=== PATIENT | male | born 1990 | race Caucasian/White ===

== ENCOUNTER 2017-02-26 21:03 | Emergency (ER) | payer MEDICAID ==
[~2017-02-26] VITALS: Ht 175.3 cm; Wt 123.4 kg
[2017-02-26 21:27] VITALS: BP 158/96
== END 2017-02-26 21:32 | disposition left against medical advice (07) ==
LOC: ER 21:03
DX: R04.0 Epistaxis (principal); Z53.21 Procedure and treatment not carried out due to patient leaving prior to being seen by health care provider

== ENCOUNTER 2018-07-01 15:57 | Emergency (ER) | payer MEDICAID ==
[~2018-07-01] VITALS: Ht 172.7 cm; Wt 110.2 kg
[2018-07-01 16:23] VITALS: BP 147/82
[2018-07-01] MEDS ORDERED: TETANUS-DIPTH-ACEL PERTUSSIS 0.5ML SYRG IM ONE (20:30)
== END 2018-07-01 20:54 | disposition home or self-care (01) ==
LOC: ER 16:07
DX: S61.211A Laceration without foreign body of left index finger without damage to nail, initial encounter (principal); W26.0XXA Contact with knife, initial encounter; Y93.89 Activity, other specified; Y99.8 Other external cause status; Y92.89 Other specified places as the place of occurrence of the external cause
CPT/HCPCS: 90715

== ENCOUNTER 2019-10-15 20:45 | Emergency (ER) | payer MEDICAID ==
[~2019-10-15] VITALS: Ht 177.8 cm; Wt 119.7 kg
[2019-10-15 23:45] VITALS: BP 142/87
== END 2019-10-16 00:28 | disposition home or self-care (01) ==
LOC: ER 20:48
DX: J01.00 Acute maxillary sinusitis, unspecified (principal); H65.93 Unspecified nonsuppurative otitis media, bilateral; J44.9 Chronic obstructive pulmonary disease, unspecified; I10 Essential (primary) hypertension; E07.9 Disorder of thyroid, unspecified

== ENCOUNTER 2021-04-30 11:40 | Emergency (ER) | payer MEDICAID ==
[~2021-04-30] VITALS: Ht 175.3 cm; Wt 72.6 kg
[2021-04-30 12:22] VITALS: BP 163/114
[2021-04-30] MEDS ORDERED: ACETAMINOPHEN 500 MG TAB PO ONE (13:00)
== END 2021-04-30 13:20 | disposition home or self-care (01) ==
LOC: ER 11:40
DX: S93.491A Sprain of other ligament of right ankle, initial encounter (principal); J44.9 Chronic obstructive pulmonary disease, unspecified; I10 Essential (primary) hypertension; W22.8XXA Striking against or struck by other objects, initial encounter; Y93.89 Activity, other specified; Y92.89 Other specified places as the place of occurrence of the external cause; Y99.8 Other external cause status
CPT/HCPCS: 73610

== ENCOUNTER 2023-08-18 21:02 | Emergency (ER) | payer MEDICAID ==
[~2023-08-18] VITALS: Ht 170.2 cm; Wt 124.0 kg
[2023-08-18 22:46] LABS: Basophils # (auto) 0 10 ^3/uL (0-0.2); Basophils % (auto) 0.3 % (0.0-2.0); Eosinophils # (auto) 0.1 10 ^3/uL (0-0.8); Eosinophils % (auto) 0.4 % (0.0-7.0); Hematocrit 46.9 % (41.0-53.0); Lymphocytes # (auto) 0.5 10 ^3/uL (0.4-5.4); Lymphocytes % (auto) 3.4 % (10.0-50.0); Mean Corpuscular Hemoglobin 28.2 pg (28.0-32.0); Mean Corpuscular Hgb Conc. 34.1 g/dL (32.0-36.0); Mean Corpuscular Volume 82.7 fL (80.0-100.0); Monocytes # (auto) 0.5 10 ^3/uL (0-1.3); Monocytes % (auto) 3.1 % (0.0-12.0); Neutrophils # (auto) 14.5 10 ^3/uL (1.6-8.6); Neutrophils % (auto) 92.8 % (37.0-80.0); Nucleated Red Blood Cells % 0.2 %; Red Blood Cells 5.67 10^6/uL (4.5-5.90); Red Cell Distribution Width 13.3 % (11.8-14.3); White Blood Cell 15.6 10^3/uL (4.4-10.8)
[2023-08-18 22:59] LABS: Alanine Aminotransferase 26 U/L (7-40); Alkaline Phosphatase 130 U/L (46-116); Anion Gap 6 (5-15); Aspartate Aminotransferase 16 U/L (13-40); BUN/Creatinine Ratio 13.4 (10.0-20.0); Blood Urea Nitrogen 15 mg/dL (9-23); Calcium 9.5 mg/dL (8.7-10.4); Carbon Dioxide 27 mmol/L (20-30); Chloride 103 mmol/L (98-107); Glucose 115 mg/dL (74-106); Lipase 40 U/L (12-53); Potassium 4.3 mmol/L (3.5-5.1); Sodium 136 mmol/L (136-145)
[2023-08-18 23:00] LABS: Bilirubin, Total 0.9 mg/dL (0.2-1.0); Total Protein 8.6 g/dL (5.7-8.2)
[2023-08-18 23:15] LABS: COVID19 ANTIGEN SOFIA FIA NEGATIVE (NEGATIVE); Rapid Influenza A Negative (Negative); Rapid Influenza B Negative (Negative)
[2023-08-18] MEDS ORDERED: SODIUM CHLORIDE 0.9% 1,000 ML IV ONE (23:30)
[2023-08-19 00:35] LABS: Urine Bacteria NONE SEEN /hpf (None Seen); Urine Blood Negative /uL (Negative); Urine Clarity Clear (Clear); Urine Color Yellow (Yellow); Urine Mucus FEW (None Seen); Urine Protein, UAD TRACE (Negative); Urine Specific Gravity 1.028 (1.001-1.035); Urine Urobilinogen Normal (Negative); Urine WBC 1 /hpf (0 - 3); Urine pH 5.5 (5.0-8.0)
[2023-08-19] MEDS ORDERED: ZOFR4T PO (01:49)
[2023-08-19 01:50] VITALS: PULSE 110; RESP 16
[2023-08-19 01:52] VITALS: BP 113/76; PULSE 110; RESP 16; TEMP 98.1; O2SAT 100
== END 2023-08-19 01:56 | disposition home or self-care (01) ==
LOC: ER 21:02
DX: B34.9 Viral infection, unspecified (principal); I10 Essential (primary) hypertension; J44.9 Chronic obstructive pulmonary disease, unspecified; Z20.822 Contact with and (suspected) exposure to COVID-19
CPT/HCPCS: 36415; 71045; 80053; 81001; 83690; 85025; 87426; 87804; 99284; J7030

== ENCOUNTER 2024-12-14 11:36 | Emergency (ER) | payer MEDICAID ==
[~2024-12-14] VITALS: Ht 175.3 cm; Wt 136.1 kg
[~2024-12-14 11:36] MED LIST: ZOFR4T PO
[2024-12-14 12:34] VITALS: BP 170/129; PULSE 106; RESP 18; TEMP 98.7; O2SAT 97
[2024-12-14] MEDS: HYDROcodone-ACET 5/325MG TAB PO ONE (13:04)
--- NOTE | 2024-12-14 13:20 | DVH ---
EXAM: XY CHEST TWO VIEWS ROUTINE HISTORY: trauma, chest pain COMPARISON: Chest x-ray dated 08/19/2023. TECHNIQUE: 2 views of the chest were performed. FINDINGS: No pneumothorax, pulmonary edema, pleural effusions, or consolidative infiltrates. There is mild cent ral peribronchial thickening. The heart is not enlarged. No fractures are identified about the bony thorax. There is mildly exaggerated thoracic kyphosis. IMPRESSION: No evidence of acute chest trauma.
--- NOTE | 2024-12-14 13:21 | DVH ---
CLINICAL INDICATION: trauma, pain, 2nd digit TECHNIQUE: 3 radiographic views of the right foot were obtained. Comparison: None FINDINGS/IMPRESSION: There is no evidence of acute fracture or dislocation. The visualized joint space is well maintained. The alignment is anatomical. There is no radiopaque foreign body.
--- NOTE | 2024-12-14 13:31 | DVH ---
EXAM: XY R ANKLE 3 VIEW CLINICAL HISTORY: pain, trauma COMPARISON: R ANKLE COMPLETE on DOS: 04/30/21 TECHNIQUE: XY R ANKLE 3 VIEW Findings/Impression: 3 views of the right ankle. There is no evidence of an acute fracture, dislocation, blastic, or lytic lesions. No radiopaque foreign bodies. No joint effusion. Mild soft tissue edema.
[2024-12-14] MEDS ORDERED: BACL10TA PO (14:09)
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
== END 2024-12-14 14:20 | disposition home or self-care (01) ==
LOC: ER 11:36
DX: S90.121A Contusion of right lesser toe(s) without damage to nail, initial encounter (principal); M94.0 Chondrocostal junction syndrome [Tietze]; J44.9 Chronic obstructive pulmonary disease, unspecified; I10 Essential (primary) hypertension; Z79.899 Other long term (current) drug therapy; V89.2XXA Person injured in unspecified motor-vehicle accident, traffic, initial encounter; Y92.410 Unspecified street and highway as the place of occurrence of the external cause; Y93.89 Activity, other specified; Y99.8 Other external cause status
CPT/HCPCS: 71046; 73610; 73630